=== PATIENT | female | born 1960 | race Two or more races ===

== ENCOUNTER 2022-01-01 00:11 | Emergency (ER) | payer OTHER ==
[~2022-01-01] VITALS: Ht 160 cm; Wt 65.3 kg
== END 2022-01-01 02:40 | disposition left against medical advice (07) ==
LOC: ER 00:11
DX: R21 Rash and other nonspecific skin eruption (principal); T78.40XA Allergy, unspecified, initial encounter; X58.XXXA Exposure to other specified factors, initial encounter